=== PATIENT | male | born 1985 | race African-American/Black ===

== ENCOUNTER 2017-01-24 04:46 | Emergency (ER) | payer OTHER ==
[~2017-01-24] VITALS: Ht 177.8 cm; Wt 76.2 kg
[~2017-01-24 04:46] MED LIST: FLEXERIL PO; TORADOL 10 MG T10 MG PO
[2017-01-24 04:56] VITALS: BP 137/86
== END 2017-01-24 05:42 | disposition home or self-care (01) ==
LOC: ER 04:46
DX: H92.01 Otalgia, right ear (principal)